=== PATIENT | female | born 2000 ===

== ENCOUNTER 2021-03-14 02:17 | Inpatient (IN) | payer BC, OTHER, SELFPAY ==
[2021-03-14] VITALS (29 sets, daily range): BP systolic 81–122; BP diastolic 36–79; PULSE 41–113; RESP 9–22; TEMP 31–37.1; O2SAT 87–100; BMI 21.9
--- NOTE | ~2021-03-14 | CT_ITS ---
EXAMINATION: CT CERVICAL SPINE WITHOUT CONTRAST; UNENHANCED CT OF THE HEAD. CLINICAL INFORMATION: Found down. Altered mental status. COMPARISON: None TECHNIQUE: Routine unenhanced CT of the head with multiple coronal and sagittal reformatted images; routine unenhanced CT of the cervical spine with multiple coronal and sagittal reformatted images. This CT examination was performed using dose optimization techniques as appropriate, variously including the following: *Automated exposure control *Adjustment of mA and/or kV according to patient size (this includes techniques or standardized protocols for targeted exams where dose is matched to indication/reason for exam; i.e. extremities or head) *Use of iterative reconstruction technique DLP: 1004 mGy-cm FINDINGS: CT head: Mild diffuse commensurate prominence of ventricles and sulci is noted. No intrarenal hemorrhage, tumors or acute infarcts are visualized. No focal parenchymal lesions of the brain are noted. Retained secretions are noted within the pharynx. Maxillary sinuses are partially included in the image [id number]. Near-complete opacification of the left maxillary sinus is noted. Moderate lobulated opacification of the sphenoid sinus is visualized. Partial visualization is made of possible mucosal retention cyst within the right maxillary sinus. Frontal sinuses and ethmoid air cells are clear. Mastoid air cells and middle ear cavities are clear. No orbital emphysema is noted. Left orbital wall appears intact. CT cervical spine: No fractures or acute appearing subluxations of the cervical spine are identified. The visualized lung apices are clear. Partial visualization is made of an enteric and endotracheal tubes. No arthropathic changes of the cervical spine are visualized. CT/CT head/brain wo con IMPRESSION: CT head: -No acute intracranial abnormalities. -Findings suspicious for chronic left maxillary and sphenoid sinusitis. CT cervical spine: -No acute fractures or malalignments.
--- NOTE | ~2021-03-14 | CT_ITS ---
EXAMINATION: CT CERVICAL SPINE WITHOUT CONTRAST; UNENHANCED CT OF THE HEAD. CLINICAL INFORMATION: Found down. Altered mental status. COMPARISON: None TECHNIQUE: Routine unenhanced CT of the head with multiple coronal and sagittal reformatted images; routine unenhanced CT of the cervical spine with multiple coronal and sagittal reformatted images. This CT examination was performed using dose optimization techniques as appropriate, variously including the following: *Automated exposure control *Adjustment of mA and/or kV according to patient size (this includes techniques or standardized protocols for targeted exams where dose is matched to indication/reason for exam; i.e. extremities or head) *Use of iterative reconstruction technique DLP: 1004 mGy-cm FINDINGS: CT head: Mild diffuse commensurate prominence of ventricles and sulci is noted. No intrarenal hemorrhage, tumors or acute infarcts are visualized. No focal parenchymal lesions of the brain are noted. Retained secretions are noted within the pharynx. Maxillary sinuses are partially included in the image [id number]. Near-complete opacification of the left maxillary sinus is noted. Moderate lobulated opacification of the sphenoid sinus is visualized. Partial visualization is made of possible mucosal retention cyst within the right maxillary sinus. Frontal sinuses and ethmoid air cells are clear. Mastoid air cells and middle ear cavities are clear. No orbital emphysema is noted. Left orbital wall appears intact. CT cervical spine: No fractures or acute appearing subluxations of the cervical spine are identified. The visualized lung apices are clear. Partial visualization is made of an enteric and endotracheal tubes. No arthropathic changes of the cervical spine are visualized. CT/CT cervical spine wo con IMPRESSION: CT head: -No acute intracranial abnormalities. -Findings suspicious for chronic left maxillary and sphenoid sinusitis. CT cervical spine: -No acute fractures or malalignments.
--- NOTE | ~2021-03-14 | XR_ITS ---
EXAMINATION: XR CHEST CLINICAL INFORMATION: Endotracheal tube placement COMPARISON: CT chest 03/14/2021 TECHNIQUE: Frontal view of the chest was obtained. FINDINGS: An endotracheal tube terminates 0.5 cm superior to the eder. Normal appearance of the cardiomediastinal structures. No focal pulmonary consolidation is identified. Enteric tube courses in the subphrenic configuration. XR/XR chest 1V IMPRESSION: -Endotracheal tube terminating 0.5 cm superior to the eder.
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
--- NOTE | 2021-03-14 02:18 | PC.NURSE ---
PT ARRIVED IN ED VIA EMS W/ REPORT OF CALL BEING DISPATCHED FOR UNRESPONSIVE FEMALE, ON ARRIVAL THEY HAD DIFFICULTY LOCATING THE PATIENT AND SHE WAS FOUND TO BE IN THE [place] FROM HOUSE SHE WAS LAST SEEN AT. +ETOH, UNRESPONSIVE, SMALL LAC TO CHIN. DURING TRANSFER PT WENT INTO RESP ARREST REQUIRING BVM. EMS STATES CONFLICTING STORIES BY BYSTANDERS OF HOW PT GOT ACROSS THE STREET FROM ORIGINAL LOCATION. 1 REPORT STATES PT MAY HAVE BEEN DRAGGED FROM RESIDENCE TO WOODED AREA. 0218 PT ARRIVED W/EMS RESP W/BVM, + C SPINE, PT HAD RECEIVED 4 MG ZOFRAN IV, AND 2MG NARCAN. PER EMS PT BEGAN VOMITING WHILE IN ROUTE, REQUIRING SUCTION TO MAINTIN HER AIRWAY. #18 IN L AC POC 127 W/EMS PER MD PREPARING TO INTUBATION. 021 POC 87 0.4 NARCAN IN HR 78 R 22 0222 BP 113/79 PT VOMITING, NO GAG REFLEX, REQUIRING SUCTION TO MAINTAIN HER AIRWAY 0223 ETOMIDATE 10MG IVP IN 0223 ROCURONIUM 50MG IVP IN 0226 ET TUBE PLACED,7.0 #22 @ LIP W/+ COLOR CHANGE. HR 118 R 29, DIFFICULTY OBTAINING O2 SAT D/T COLD EXTREMITIES LOPEZ CATH IN PLACE W/CLR YELLOW URINE RETURN. OG BEING PLACED AT THIS TIME 022 129/68 HR 97 R 20 O2 SAT 100% CORE TEMP 95.[address] 0231 131/[address]
[2021-03-14] MEDS: Naloxone HCl 0.4 MG/ML VIAL IVPUSH (02:19)
[2021-03-14] MEDS: Rocuronium Bromide 50 MG/5 ML VIAL IVPUSH (02:23)
[2021-03-14] MEDS: Etomidate 20 MG/10 ML VIAL 10 MG IVPUSH (02:23)
--- NOTE | 2021-03-14 02:29 | ECG_ITS ---
Test Reason : UNRESPONSIVE Blood Pressure : / mmHG Vent. Rate : 043 BPM Atrial Rate : 000 BPM P-R Int : 000 ms QRS Dur : 092 ms QT Int : 516 ms P-R-T Axes : 000 082 060 degrees QTc Int : 436 ms Sinus bradycardia with intermittent pacing spikes, but no capture Abnormal ECG No previous ECGs available Referred By: Kelsea Russell Electronically Signed By:SHADI REAL
--- NOTE | 2021-03-14 02:41 | ED.AMS ---
HPI - Altered Mental Status General Chief Complaint: Trauma Stated Complaint: UNRESPONSIVE Time Seen by Provider: 03/14/21 02:28 Source: EMS Mode of arrival: EMS Limitations: altered mental status History of Present Illness HPI narrative: per EMS states they were called for someone who drank too much but they could not find the person at the house that they were called for. EMS somehow then found the patient at a different residence? initially she seemed intoxicated they noted a bruise to her chin and so they were going to [facility] [place] but en route she had respiratory arrest to 70% and was bagged she then had multiple episodes of emesis and required NPA as well. Patient was then diverted to our hospital given respiratory arrest. MD complaint: altered mental status and other (found down outside) Onset (ago): unknown Severity: severe Consistency of symptoms: unknown Context: other (unknown found outside) Associated symptoms: denies other symptoms Treatments prior to arrival: other (had respiratory arrest and to be bagged en route) Related Data Allergies Allergy/AdvReac Type Severity Reaction Status Date / Time No Known Allergies Allergy Verified 03/14/21 02:29 Review of Systems Review of Systems: ROS unable to be obtained due to altered mental status [facility] Past Medical History Attestation statement: The following information was validated with the patient. Medical History No known health problems Social History Social History (Updated 03/14/21 @ 02:42 by Kelsea Russell DO) Alcohol intake: current Patient Tobacco Use Status: Tobacco use Unknown Advance Directives: No Patient : No Physical Exam Vital Signs: Vital Signs: Last Vital Signs Temp 95.9 F L 03/14/21 05:05 Pulse 59 03/14/21 05:05 Resp 18 03/14/21 05:05 BP 119/77 03/14/21 05:05 Pulse Ox 99 03/14/21 05:05 BMI result Body Mass Index 21.9 Appearance: Unresponsive. Severe distress. Disheveled smells of ETOH being bagged by EMS Eyes: Pupils 2mm sluggish - disconjugate gaze noted ENT: Pharynx with emesis noted, blood on L upper lip noted, bruising and abrasion to R anterior chin noted Neck: Cervical collar in place CVS: Normal heart rate and rhythm. Pulses normal. Respiratory: No respiratory distress. Breath sounds diminished in bases Abdomen: Soft and nontender. No signs of trauma : no obvious external signs of trauma Skin: Skin cold and dry. pale skin color. Extremities: No lower extremity edema. Dirt noted on knees Neuro: Unresponsive, no gag reflex, active vomiting while being bagged, no response to painful stimuli Course Course Course Narrative: no gag reflex no response to painful stimuli vomited multiple times while being bagged with EMS was vomiting en route and vomited in ED - intubated on arrival for airway protection, pulse ox en route desaturated to 70s per EMS but no O2 sat noted while being bagged. I did notify her father [phone] he lives in [facility] patient just woke up - she is trying to reach and bite the tube she is agitated her pupils are now 4mm and reactive - she did seem to nod her head when the RN noted to her that she was safe and in the hospital fentanyl and fentanyl/versed drips ordered 2L of IVF ordered call from [facility] [id number] - patient noted on CT chest to have R mainstem intubation on ETT placement she was 22cm at the lip RN now notes she is 24 or 25 at the lip - RT called to move back tube ET tube pulled back to 21 MDM - Altered Mental Status MDM Narrative Medical decision making narrative: 20 yo female undifferentiated found down unsure if this is trauma - intubated on arrival for airway protection - stat labs and trauma CT ordered, community healtherst police are aware of situation. Labs, cultures as well as empiric zosyn ordered given her emesis en route while being bagged. Lab Data Result diagrams: 03/14/21 03:30 03/14/21 03:30 Labs: Lab Results 03/14/21 03/14/21 03/14/21 Range/Units 02:19 02:40 02:40 WBC (4.8-10.8) X10*3/uL RBC (4.20-5.50) X10*6/uL Hgb (12.0-16.0) g/dl Hct (37.0-47.0) % MCV (80.0-98.0) fL MCH (27.0-33.0) pg MCHC (31.0-35.0) g/dl RDW (11.0-16.0) % Plt Count (160-400) X10*3/uL MPV (9.4-12.3) fL Immature Gran % (Auto) (0.0-0.4) % Neut % (Auto) (45-73) % Lymph % (Auto) (20-40) % Graves % (Auto) (2-11) % Eos % (Auto) (0-4) % Baso % (Auto) (0-2) % Lymph # (Auto) (1.2-4.9) X10*3/uL Graves # (Auto) (0.1-1.2) X10*3/uL Eos # (Auto) (0.0-0.4) X10*3/uL Baso # (Auto) (0.0-0.2) X10*3/uL Abs Immat Gran (auto) (0.00-0.03) X10*3/uL Absolute Neuts (auto) (2.0-8.3) x10*3/uL Absolute Nucleated RBC (0.0-0.012) X10*3/uL Nucleated RBC % (auto) (0.0-0.2) /100WBC PT (9.9-13.0) SEC INR (0.9-1.1) APTT (24.1-38.0) SEC VBG pH (7.32-7.43) VBG pCO2 mmHg VBG pO2 mmHg VBG HCO3 (22-26) mmol/L VBG O2 Saturation % VBG Base Excess mmol/L Sodium (135-145) mmol/L Potassium (3.3-5.1) mmol/L Chloride (96-108) mmol/L Carbon Dioxide (22-29) mmol/L Anion Gap (12-20) BUN (9-16) mg/dL Creatinine (0.5-1.4) mg/dL Estim Creat Clear Calc Estimated GFR POC Glucose 87 (60-115) mg/dL Random Glucose (60-115) mg/dL Lactic Acid (0.5-2.0) mmol/L Calcium (8.4-10.2) mg/dL Magnesium (1.6-2.6) mg/dL Total Bilirubin (0.0-1.0) mg/dL Direct Bilirubin (0.0-0.5) mg/dL AST (5-31) U/L ALT (0-31) U/L Alkaline Phosphatase (39-117) U/L Ammonia (13-55) umol/L Total Creatine Kinase (26-140) U/L Troponin I High Sens (<3.5-17.0) ng/L Total Protein (6.5-8.0) g/dL Albumin (3.5-5.0) g/dL Lipase (8-78) U/L Urine Color YELLOW Urine Appearance CLEAR Urine pH 6.0 (5.0-8.0) Ur Specific Archer <= 1.005 (1.005-1.025) Urine Protein NEG (NEG-TRACE) MG/DL Urine Glucose (UA) NEG (NEG) MG/DL Urine Ketones 15 (NEG) MG/DL Urine Blood NEG (NEG) Urine Nitrite NEG (NEG) Ur Leukocyte Esterase NEG (NEG) Urine Test (NEGATIVE) Salicylates (15-30) mg/dL Urine Opiates Screen Not Detected (Not Detect) Urine Fentanyl Screen Not Detected (Not Detect) Acetaminophen (<30) mcg/mL Ur Barbiturates Screen Not Detected (Not Detect) Ur Phencyclidine Scrn Not Detected (Not Detect) Ur Amphetamines Screen Not Detected (Not Detect) U Benzodiazepines Scrn Not Detected (Not Detect) Urine Cocaine Screen Not Detected (Not Detect) U Marijuana (THC) Screen Not Detected (Not Detect) Ethyl Alcohol mg/dL COVID-19 (JAVIER) (Negative) COVID-19 Clin Com 03/14/21 03/14/21 03/14/21 Range/Units 02:40 03:28 03:29 WBC (4.8-10.8) X10*3/uL RBC (4.20-5.50) X10*6/uL Hgb (12.0-16.0) g/dl Hct (37.0-47.0) % MCV (80.0-98.0) fL MCH (27.0-33.0) pg MCHC (31.0-35.0) g/dl RDW (11.0-16.0) % Plt Count (160-400) X10*3/uL MPV (9.4-12.3) fL Immature Gran % (Auto) (0.0-0.4) % Neut % (Auto) (45-73) % Lymph % (Auto) (20-40) % Graves % (Auto) (2-11) % Eos % (Auto) (0-4) % Baso % (Auto) (0-2) % Lymph # (Auto) (1.2-4.9) X10*3/uL Graves # (Auto) (0.1-1.2) X10*3/uL Eos # (Auto) (0.0-0.4) X10*3/uL Baso # (Auto) (0.0-0.2) X10*3/uL Abs Immat Gran (auto) (0.00-0.03) X10*3/uL Absolute Neuts (auto) (2.0-8.3) x10*3/uL Absolute Nucleated RBC (0.0-0.012) X10*3/uL Nucleated RBC % (auto) (0.0-0.2) /100WBC PT 13.7 H (9.9-13.0) SEC INR 1.2 H (0.9-1.1) APTT 31.1 (24.1-38.0) SEC VBG pH (7.32-7.43) VBG pCO2 mmHg VBG pO2 mmHg VBG HCO3 (22-26) mmol/L VBG O2 Saturation % VBG Base Excess mmol/L Sodium (135-145) mmol/L Potassium (3.3-5.1) mmol/L Chloride (96-108) mmol/L Carbon Dioxide (22-29) mmol/L Anion Gap (12-20) BUN (9-16) mg/dL Creatinine (0.5-1.4) mg/dL Estim Creat Clear Calc Estimated GFR POC Glucose (60-115) mg/dL Random Glucose (60-115) mg/dL Lactic Acid 4.4 H* (0.5-2.0) mmol/L Calcium (8.4-10.2) mg/dL Magnesium (1.6-2.6) mg/dL Total Bilirubin (0.0-1.0) mg/dL Direct Bilirubin (0.0-0.5) mg/dL AST (5-31) U/L ALT (0-31) U/L Alkaline Phosphatase (39-117) U/L Ammonia (13-55) umol/L Total Creatine Kinase (26-140) U/L Troponin I High Sens (<3.5-17.0) ng/L Total Protein (6.5-8.0) g/dL Albumin (3.5-5.0) g/dL Lipase (8-78) U/L Urine Color Urine Appearance Urine pH (5.0-8.0) Ur Specific Archer (1.005-1.025) Urine Protein (NEG-TRACE) MG/DL Urine Glucose (UA) (NEG) MG/DL Urine Ketones (NEG) MG/DL Urine Blood (NEG) Urine Nitrite (NEG) Ur Leukocyte Esterase (NEG) Urine Test NEGATIVE (NEGATIVE) Salicylates (15-30) mg/dL Urine Opiates Screen (Not Detect) Urine Fentanyl Screen (Not Detect) Acetaminophen (<30) mcg/mL Ur Barbiturates Screen (Not Detect) Ur Phencyclidine Scrn (Not Detect) Ur Amphetamines Screen (Not Detect) U Benzodiazepines Scrn (Not Detect) Urine Cocaine Screen (Not Detect) U Marijuana (THC) Screen (Not Detect) Ethyl Alcohol mg/dL COVID-19 (JAVIER) (Negative) COVID-19 Clin Com 03/14/21 03/14/21 03/14/21 Range/Units 03:29 03:29 03:29 WBC (4.8-10.8) X10*3/uL RBC (4.20-5.50) X10*6/uL Hgb (12.0-16.0) g/dl Hct (37.0-47.0) % MCV (80.0-98.0) fL MCH (27.0-33.0) pg MCHC (31.0-35.0) g/dl RDW (11.0-16.0) % Plt Count (160-400) X10*3/uL MPV (9.4-12.3) fL Immature Gran % (Auto) (0.0-0.4) % Neut % (Auto) (45-73) % Lymph % (Auto) (20-40) % Graves % (Auto) (2-11) % Eos % (Auto) (0-4) % Baso % (Auto) (0-2) % Lymph # (Auto) (1.2-4.9) X10*3/uL Graves # (Auto) (0.1-1.2) X10*3/uL Eos # (Auto) (0.0-0.4) X10*3/uL Baso # (Auto) (0.0-0.2) X10*3/uL Abs Immat Gran (auto) (0.00-0.03) X10*3/uL Absolute Neuts (auto) (2.0-8.3) x10*3/uL Absolute Nucleated RBC (0.0-0.012) X10*3/uL Nucleated RBC % (auto) (0.0-0.2) /100WBC PT (9.9-13.0) SEC INR (0.9-1.1) APTT (24.1-38.0) SEC VBG pH (7.32-7.43) VBG pCO2 mmHg VBG pO2 mmHg VBG HCO3 (22-26) mmol/L VBG O2 Saturation % VBG Base Excess mmol/L Sodium (135-145) mmol/L Potassium (3.3-5.1) mmol/L Chloride (96-108) mmol/L Carbon Dioxide (22-29) mmol/L Anion Gap (12-20) BUN (9-16) mg/dL Creatinine (0.5-1.4) mg/dL Estim Creat Clear Calc Estimated GFR POC Glucose (60-115) mg/dL Random Glucose (60-115) mg/dL Lactic Acid (0.5-2.0) mmol/L Calcium (8.4-10.2) mg/dL Magnesium (1.6-2.6) mg/dL Total Bilirubin (0.0-1.0) mg/dL Direct Bilirubin (0.0-0.5) mg/dL AST (5-31) U/L ALT (0-31) U/L Alkaline Phosphatase (39-117) U/L Ammonia 14 (13-55) umol/L Total Creatine Kinase (26-140) U/L Troponin I High Sens < 3.5 (<3.5-17.0) ng/L Total Protein (6.5-8.0) g/dL Albumin (3.5-5.0) g/dL Lipase (8-78) U/L Urine Color Urine Appearance Urine pH (5.0-8.0) Ur Specific Archer (1.005-1.025) Urine Protein (NEG-TRACE) MG/DL Urine Glucose (UA) (NEG) MG/DL Urine Ketones (NEG) MG/DL Urine Blood (NEG) Urine Nitrite (NEG) Ur Leukocyte Esterase (NEG) Urine Test (NEGATIVE) Salicylates (15-30) mg/dL Urine Opiates Screen (Not Detect) Urine Fentanyl Screen (Not Detect) Acetaminophen (<30) mcg/mL Ur Barbiturates Screen (Not Detect) Ur Phencyclidine Scrn (Not Detect) Ur Amphetamines Screen (Not Detect) U Benzodiazepines Scrn (Not Detect) Urine Cocaine Screen (Not Detect) U Marijuana (THC) Screen (Not Detect) Ethyl Alcohol 297 mg/dL COVID-19 (JAVIER) (Negative) COVID-19 Clin Com 03/14/21 03/14/21 03/14/21 Range/Units 03:30 03:30 03:30 WBC 7.6 (4.8-10.8) X10*3/uL RBC 3.57 L (4.20-5.50) X10*6/uL Hgb 11.0 L (12.0-16.0) g/dl Hct 33.4 L (37.0-47.0) % MCV 93.6 (80.0-98.0) fL MCH 30.8 (27.0-33.0) pg MCHC 32.9 (31.0-35.0) g/dl RDW 12.4 (11.0-16.0) % Plt Count 233 (160-400) X10*3/uL MPV 10.1 (9.4-12.3) fL Immature Gran % (Auto) 0.4 (0.0-0.4) % Neut % (Auto) 77.2 H (45-73) % Lymph % (Auto) 18.0 L (20-40) % Graves % (Auto) 3.8 (2-11) % Eos % (Auto) 0.1 (0-4) % Baso % (Auto) 0.5 (0-2) % Lymph # (Auto) 1.4 (1.2-4.9) X10*3/uL Graves # (Auto) 0.3 (0.1-1.2) X10*3/uL Eos # (Auto) 0.0 (0.0-0.4) X10*3/uL Baso # (Auto) 0.0 (0.0-0.2) X10*3/uL Abs Immat Gran (auto) 0.03 (0.00-0.03) X10*3/uL Absolute Neuts (auto) 5.8 (2.0-8.3) x10*3/uL Absolute Nucleated RBC 0.000 (0.0-0.012) X10*3/uL Nucleated RBC % (auto) 0.0 (0.0-0.2) /100WBC PT (9.9-13.0) SEC INR (0.9-1.1) APTT (24.1-38.0) SEC VBG pH (7.32-7.43) VBG pCO2 mmHg VBG pO2 mmHg VBG HCO3 (22-26) mmol/L VBG O2 Saturation % VBG Base Excess mmol/L Sodium 137 (135-145) mmol/L Potassium 3.3 (3.3-5.1) mmol/L Chloride 105 (96-108) mmol/L Carbon Dioxide 17 L (22-29) mmol/L Anion Gap 18 (12-20) BUN 7 L (9-16) mg/dL Creatinine 0.68 (0.5-1.4) mg/dL Estim Creat Clear Calc 105.2 Estimated GFR > 60 POC Glucose (60-115) mg/dL Random Glucose 106 (60-115) mg/dL Lactic Acid (0.5-2.0) mmol/L Calcium 8.3 L (8.4-10.2) mg/dL Magnesium 2.0 (1.6-2.6) mg/dL Total Bilirubin 0.5 (0.0-1.0) mg/dL Direct Bilirubin 0.3 (0.0-0.5) mg/dL AST 19 (5-31) U/L ALT 10 (0-31) U/L Alkaline Phosphatase 55 (39-117) U/L Ammonia (13-55) umol/L Total Creatine Kinase 89 (26-140) U/L Troponin I High Sens (<3.5-17.0) ng/L Total Protein 6.2 L (6.5-8.0) g/dL Albumin 4.0 (3.5-5.0) g/dL Lipase 19 (8-78) U/L Urine Color Urine Appearance Urine pH (5.0-8.0) Ur Specific Archer (1.005-1.025) Urine Protein (NEG-TRACE) MG/DL Urine Glucose (UA) (NEG) MG/DL Urine Ketones (NEG) MG/DL Urine Blood (NEG) Urine Nitrite (NEG) Ur Leukocyte Esterase (NEG) Urine Test (NEGATIVE) Salicylates < 5.0 L (15-30) mg/dL Urine Opiates Screen (Not Detect) Urine Fentanyl Screen (Not Detect) Acetaminophen < 1 (<30) mcg/mL Ur Barbiturates Screen (Not Detect) Ur Phencyclidine Scrn (Not Detect) Ur Amphetamines Screen (Not Detect) U Benzodiazepines Scrn (Not Detect) Urine Cocaine Screen (Not Detect) U Marijuana (THC) Screen (Not Detect) Ethyl Alcohol mg/dL COVID-19 (JAVIER) Negative (Negative) COVID-19 Clin Com See Note 03/14/21 Range/Units 03:34 WBC (4.8-10.8) X10*3/uL RBC (4.20-5.50) X10*6/uL Hgb (12.0-16.0) g/dl Hct (37.0-47.0) % MCV (80.0-98.0) fL MCH (27.0-33.0) pg MCHC (31.0-35.0) g/dl RDW (11.0-16.0) % Plt Count (160-400) X10*3/uL MPV (9.4-12.3) fL Immature Gran % (Auto) (0.0-0.4) % Neut % (Auto) (45-73) % Lymph % (Auto) (20-40) % Graves % (Auto) (2-11) % Eos % (Auto) (0-4) % Baso % (Auto) (0-2) % Lymph # (Auto) (1.2-4.9) X10*3/uL Graves # (Auto) (0.1-1.2) X10*3/uL Eos # (Auto) (0.0-0.4) X10*3/uL Baso # (Auto) (0.0-0.2) X10*3/uL Abs Immat Gran (auto) (0.00-0.03) X10*3/uL Absolute Neuts (auto) (2.0-8.3) x10*3/uL Absolute Nucleated RBC (0.0-0.012) X10*3/uL Nucleated RBC % (auto) (0.0-0.2) /100WBC PT (9.9-13.0) SEC INR (0.9-1.1) APTT (24.1-38.0) SEC VBG pH 7.39 (7.32-7.43) VBG pCO2 28 mmHg VBG pO2 56 mmHg VBG HCO3 17 L (22-26) mmol/L VBG O2 Saturation 82.0 % VBG Base Excess -6.1 mmol/L Sodium (135-145) mmol/L Potassium (3.3-5.1) mmol/L Chloride (96-108) mmol/L Carbon Dioxide (22-29) mmol/L Anion Gap (12-20) BUN (9-16) mg/dL Creatinine (0.5-1.4) mg/dL Estim Creat Clear Calc Estimated GFR POC Glucose (60-115) mg/dL Random Glucose (60-115) mg/dL Lactic Acid (0.5-2.0) mmol/L Calcium (8.4-10.2) mg/dL Magnesium (1.6-2.6) mg/dL Total Bilirubin (0.0-1.0) mg/dL Direct Bilirubin (0.0-0.5) mg/dL AST (5-31) U/L ALT (0-31) U/L Alkaline Phosphatase (39-117) U/L Ammonia (13-55) umol/L Total Creatine Kinase (26-140) U/L Troponin I High Sens (<3.5-17.0) ng/L Total Protein (6.5-8.0) g/dL Albumin (3.5-5.0) g/dL Lipase (8-78) U/L Urine Color Urine Appearance Urine pH (5.0-8.0) Ur Specific Archer (1.005-1.025) Urine Protein (NEG-TRACE) MG/DL Urine Glucose (UA) (NEG) MG/DL Urine Ketones (NEG) MG/DL Urine Blood (NEG) Urine Nitrite (NEG) Ur Leukocyte Esterase (NEG) Urine Test (NEGATIVE) Salicylates (15-30) mg/dL Urine Opiates Screen (Not Detect) Urine Fentanyl Screen (Not Detect) Acetaminophen (<30) mcg/mL Ur Barbiturates Screen (Not Detect) Ur Phencyclidine Scrn (Not Detect) Ur Amphetamines Screen (Not Detect) U Benzodiazepines Scrn (Not Detect) Urine Cocaine Screen (Not Detect) U Marijuana (THC) Screen (Not Detect) Ethyl Alcohol mg/dL COVID-19 (JAVIER) (Negative) COVID-19 Clin Com ECG Data ECG #1: Attestation: I personally reviewed and interpreted this ECG as follows: ECG interpretation date: 03/14/21 ECG interpretation time: 03:25 Interpretation: Rate: 43 Rhythm: junctional bradycardia Evarts: normal Normal P waves. Normal MARQUITA. Normal QRS complex. ST T wave : nonspecific no MADDIE qTC: normal prior studies: no prior artifact noted The study has been interpreted contemporaneously by me. . Procedures Intubation Time out performed: Yes sedative: Etomidate Mg Given: 10 paralytic: Rocuronium Mg Given: 50 Laryngoscope: Xiomara Assist Device Used: other (glidescope) ET Tube Size: 7 Tube Secured Depth (cm): 22 Tube Secured Location: lips Tube Placement Confirmation: visualized tube passing through cords, equal breath sounds bilaterally and confirmation by capnometry Patient Tolerated Procedure: well and no complications Additional Comments: c spine held during intubation by social media executive Time Critical Care Time Critical Care Time: Yes Total Critical Care Time: 90 Attestation: reassessments, call to family, vent management, sedation, 2L of IVF I attest to this time spent taking care of the patient Discharge Plan Discharge Clinical Impression: Acidosis, lactic Aspiration pneumonia Qualifiers: Aspiration pneumonia type: unspecified Laterality: unspecified laterality Lung location: unspecified part of lung Qualified Code(s): J69.0 - Pneumonitis due to inhalation of food and vomit Facial hematoma Qualifiers: Encounter type: initial encounter Qualified Code(s): S00.83XA - Contusion of other part of head, initial encounter Alcohol intoxication Qualifiers: Complication of substance-induced condition: with unspecified complication Qualified Code(s): F10.929 - Alcohol use, unspecified with intoxication, unspecified Hypothermia Qualifiers: Encounter type: initial encounter Qualified Code(s): T68.XXXA - Hypothermia, initial encounter Patient Disposition: Admitted As Inpatient
[2021-03-14 02:47] LABS: Appearance Urine CLEAR; Color Urine YELLOW; Glucose Urine UA NEG (NEG); Leukocyte Esterase Urine NEG (NEG); Nitrite Urine NEG (NEG); Specific Gravity - Urine <= 1.005 (1.005-1.025); Urine Blood NEG (NEG); Urine Ketones 15 MG/DL (NEG); Urine Protein NEG (NEG-TRACE)
[2021-03-14 02:53] LABS: UPreg QC Valid YES; Urine Pregnancy NEGATIVE (NEGATIVE)
[2021-03-14 03:05] LABS: Amphetamine Screen Urine Not Detected (Not Detect); Barbiturates, Urine Not Detected (Not Detect); Benzodiazepines Screen Urine Not Detected (Not Detect); Cannabinoid Screen Urine Not Detected (Not Detect); Cocaine Screen Urine Not Detected (Not Detect); Fentanyl, urine Not Detected (Not Detect); Opiate Screen Urine Not Detected (Not Detect); Phencyclidine Screen Urine Not Detected (Not Detect)
[2021-03-14] MEDS: iohexoL 350 MG/ML 100 ML INFUS..BTL 85 ML IV (03:32)
[2021-03-14 03:36] LABS: MANUAL DIFF FLAG NO
[2021-03-14] MEDS: 0.9 % Sodium Chloride 1,000 ML 999 ML IVCONT ×2 (03:38→03:40)
--- NOTE | 2021-03-14 03:38 | PC.NURSE ---
PTS FATHER CALLED FOR UPDATE, MADE AWARE WE ARE WAITING ON RESULTS OF CT SCAN AND LABS. PER DAD WILL CALL BACK IN 30 MINS FOR UPDATE
[2021-03-14 03:40] LABS: VBG Base Excess -6.1 mmol/L; VBG HCO3 17 mmol/L (22-26); VBG pCO2 28 mmHg; VBG pH 7.39 (7.32-7.43); VBG pO2 56 mmHg
[2021-03-14 03:40] LABS: Basophils Percent Auto 0.5 % (0-2); Eosinophils Percent Auto 0.1 % (0-4); Hematocrit 33.4 % (37.0-47.0); Imm Gran Abs Auto 0.03 X10*3/uL (0.00-0.03); Imm Gran Pct Auto 0.4 % (0.0-0.4); Lymphocytes Absolute Auto 1.4 X10*3/uL (1.2-4.9); Mean Corpuscular HGB Conc 32.9 g/dl (31.0-35.0); Mean Corpuscular Hemoglobin 30.8 pg (27.0-33.0); Mean Corpuscular Volume 93.6 fL (80.0-98.0); Mean Platelet Volume 10.1 fL (9.4-12.3); Monocytes Absolute Auto 0.3 X10*3/uL (0.1-1.2); Monocytes Percent Auto 3.8 % (2-11); Neutrophils Absolute Auto 5.8 x10*3/uL (2.0-8.3); Neutrophils Percent Auto 77.2 % (45-73); Platelet Count 233 X10*3/uL (160-400); Red Blood Count 3.57 X10*6/uL (4.20-5.50); Red Cell Distribution Width 12.4 % (11.0-16.0); White Blood Count 7.6 X10*3/uL (4.8-10.8)
[2021-03-14 03:42] LABS: Glucose, Whole Blood 87 mg/dL (60-115)
[2021-03-14] MEDS: Piperacillin Sodium/Tazobactam 3.375 GM in 0.9 % Sodium Chloride 50 ML IV (03:42)
[2021-03-14 03:44] LABS: Ammonia 14 umol/L (13-55)
[2021-03-14 03:46] LABS: INTERNATIONAL NORM RATIO 1.2 (0.9-1.1); Prothrombin Time 13.7 SEC (9.9-13.0)
[2021-03-14 03:46] LABS: Venous Blood Gas Refer to POC result
[2021-03-14 03:49] LABS: Partial Thromboplastin Time 31.1 SEC (24.1-38.0)
[2021-03-14 03:52] LABS: Lactic Acid 4.4 mmol/L (0.5-2.0)
[2021-03-14 03:53] LABS: Ethanol 297 mg/dL
[2021-03-14 03:56] LABS: Troponin-I High Sensitivity < 3.5 ng/L (<3.5-17.0)
[2021-03-14] MEDS: fentaNYL citrate/PF 100 MCG/2 ML VIAL 50 MCG IVPUSH (03:57)
[2021-03-14 03:58] LABS: Acetaminophen LAB < 1 mcg/mL (<30); Alanine Aminotransferase 10 U/L (0-31); Alkaline Phosphatase 55 U/L (39-117); Anion Gap 18 (12-20); Aspartate Amino Transferase 19 U/L (5-31); Bilirubin Direct 0.3 mg/dL (0.0-0.5); Bilirubin Total 0.5 mg/dL (0.0-1.0); Blood Urea Nitrogen 7 mg/dL (9-16); COVID-19 Test Negative (Negative); Calcium 8.3 mg/dL (8.4-10.2); Carbon Dioxide 17 mmol/L (22-29); Chloride 105 mmol/L (96-108); Creatinine Clr Calc Pharmacy 105.2; Estimated Glomerular Filt Rate > 60; Glucose Random 106 mg/dL (60-115); IDNOW Serial# 9DD0AD1C; Lipase 19 U/L (8-78); Potassium 3.3 mmol/L (3.3-5.1); Salicylate < 5.0 mg/dL (15-30); Sodium 137 mmol/L (135-145); Total Protein 6.2 g/dL (6.5-8.0)
--- NOTE | 2021-03-14 03:59 | PC.NURSE ---
Pt brought to ED CT on groundwater monitoring technician, HR to [address] Core temp remained 94.6 degrees f. Pt returned to room without incidence. Pt medicated per JUN with 2L NS and zosyn. Pt began moving head, moving arms, lifting head off of bead. This rn spoke to pt to calm her while DAVID Benton micah up fentanyl per Dr Russell's order. Pt medicated with fentanyl for sedation. Pt sedated at this time.
[2021-03-14] MEDS: fentaNYL citrate/NS 1,000 MCG/100 ML PLAST..BAG 2.5 MCG IVCONT (04:10)
[2021-03-14] MEDS: Midazolam HCl/NS 50 MG/50 ML PLAST..BAG IVCONT (04:19)
[2021-03-14] MEDS: Midazolam HCl/PF 2 MG/2 ML VIAL 1 MG IVPUSH (04:20)
--- NOTE | 2021-03-14 04:21 | PC.NURSE ---
Pt thrashing arms and legs, lifting head off of stretcher. Pt informed she is in the hospital, is OK and safe. Pt shaking her head no.
--- NOTE | 2021-03-14 04:31 | PC.NURSE ---
etomidate 10mg wasted with Fabiana Turner RN. Fentanyl 50mcg wasted with Fabiana Turner RN.
--- NOTE | 2021-03-14 04:39 | PC.NURSE ---
WICKER WORKER FROM [facility] [employer] HERE, SPOKE W/DR. PALMA AND MYSELF. UPDATED ON PATIENTS CONDITION AND THAT WE HAD BEEN IN CONTACT W/ FAMILY. WICKER WORKER STATES HE WILL BE IN CONTACT W/IN 4-5 HOURS
--- NOTE | 2021-03-14 04:46 | PC.NURSE ---
Dr Russell asked this RN what pt's tube was at lip. Tube noted to be [address] Russell requesting RT to bedside to pull back to 22 at lip. RT to bedside, ET tube [address] lip. CXR obtained. Dr Russell requesting RT position ET tube to 21 at lip. ET tube positioned at 21 at lip.
[2021-03-14] MEDS: 0.9 % Sodium Chloride 1,000 ML 999 ML IV (04:49)
--- NOTE | 2021-03-14 04:53 | PC.NURSE ---
CARRINGTON Enamorado at bedside to perform eval.
--- NOTE | 2021-03-14 04:55 | PC.NURSE ---
This RN asking RT multiple times how to improve pt's ETCO2. RT informs this RN that the belief is that pt's ETCO2 is low 2/2 hypothermia.
--- NOTE | 2021-03-14 05:08 | PC.NURSE ---
ALL OF PATIENTS BELONGINGS- PHONE, JEWELRY, CLOTHING WERE GIVEN TO GARDENING MANAGER CHARLINE AGGARWAL . PT FAMILY MADE AWARE. DAD HAS ALSO BEEN UPDATED ON PATIENTS STATUS AT THIS TIME. SHE WILL BE GOING TO ICU FOR DURATION OF CARE
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
[2021-03-14 05:33] LABS: Reflex Lactate? Lactic Acid Added
--- NOTE | 2021-03-14 05:33 | PC.NURSE ---
RT aware that pt is ready for transport.
--- NOTE | 2021-03-14 05:41 | PC.NURSE ---
Pt eyes open, moving her hand, this RN informing pt she's ok. Pt shaking head no. Pt fentanyl increased to 100mcg
--- NOTE | 2021-03-14 06:09 | PC.NURSE ---
SIGIFREDO ([facility] [place]) [phone]
[2021-03-14] MEDS: Lactated Ringers 1,000 ML 125 ML IVCONT (06:53)
--- NOTE | 2021-03-14 06:55 | PC.NURSE ---
Pt remains stable on ventilator prior to, and during, transport with RT and Serenity HERNANDEZ to ICU. Pt transferred to icu bed without incidence.
[2021-03-14 07:16] LABS: VBG Base Excess -7.4 mmol/L; VBG HCO3 15 mmol/L (22-26); VBG pCO2 24 mmHg; VBG pH 7.41 (7.32-7.43); VBG pO2 164 mmHg
[2021-03-14 07:53] LABS: Osmolality, Serum 340 mosm/kg (281-305)
[2021-03-14 07:54] LABS: ~Lactic Acid-LAB USE ONLY 4.2 mmol/L (0.5-2.0)
[2021-03-14 08:01] LABS: Alanine Aminotransferase 12 U/L (0-31); Albumin Level 3.4 g/dL (3.5-5.0); Alkaline Phosphatase 48 U/L (39-117); Anion Gap 17 (12-20); Aspartate Amino Transferase 22 U/L (5-31); Bilirubin Direct 0.2 mg/dL (0.0-0.5); Bilirubin Total 0.5 mg/dL (0.0-1.0); Blood Urea Nitrogen 6 mg/dL (9-16); Carbon Dioxide 15 mmol/L (22-29); Chloride 114 mmol/L (96-108); Creatinine Clr Calc Pharmacy 123.3; Estimated Glomerular Filt Rate > 60; Glucose Random 77 mg/dL (60-115); Magnesium 1.7 mg/dL (1.6-2.6); Potassium 3.6 mmol/L (3.3-5.1); Sodium 142 mmol/L (135-145); Total Protein 5.3 g/dL (6.5-8.0)
[2021-03-14 08:15] LABS: Calcium 7.4 mg/dL (8.4-10.2)
[2021-03-14 09:33] LABS: Reflex Lactate? 2 Y
[2021-03-14] MEDS: Magnesium Sulfate/D5W 1 GM/100 ML PIGGYBACK IV (09:45)
[2021-03-14 09:51] LABS: Acetone, serum QL Negative (Negative)
[2021-03-14] MEDS: Thiamine HCL 100 MG in 0.9 % Sodium Chloride 100 ML 202 MG IV (10:20)
[2021-03-14 10:23] LABS: VBG Base Excess -9.5 mmol/L; VBG HCO3 14 mmol/L (22-26); VBG pCO2 27 mmHg; VBG pH 7.32 (7.32-7.43); VBG pO2 43 mmHg
[2021-03-14 10:49] LABS: Anion Gap 24 (12-20); Blood Urea Nitrogen 7 mg/dL (9-16); Calcium 7.7 mg/dL (8.4-10.2); Carbon Dioxide 9 mmol/L (22-29); Chloride 114 mmol/L (96-108); Creatinine Clr Calc Pharmacy 106.8; Estimated Glomerular Filt Rate > 60; Glucose Random 58 mg/dL (60-115); Phosphorus 3.2 mg/dL (2.7-4.5); Potassium 3.7 mmol/L (3.3-5.1); Sodium 143 mmol/L (135-145)
[2021-03-14] MEDS: Sodium Bicarbonate 8.4% 50 MEQ in Dextrose 5 % 950 ML 100 MEQ IV (10:57)
[2021-03-14 11:00] LABS: Osmolality, Serum 337 mosm/kg (281-305)
--- NOTE | 2021-03-14 11:16 | MHC.CM.PN ---
Pt presently in ICU - intubated and unable to participate in assessment: Information obtained from ICU staff and EMR: pt is a student at [employer] and was brought in with ETOH intoxication/aspiration pna. Pt's parents are on their way from [facility] to follow for d/c planning when appropriate
[2021-03-14 11:34] LABS: Venous Blood Gas Refer to POC result
[2021-03-14 11:34] LABS: Venous Blood Gas Refer to POC result
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
--- NOTE | 2021-03-14 11:58 | P.CONCC_ITS ---
History of Present Illness Data of Consult Service Date: 03/14/21 Requesting physician: Kelsea Russell Primary Care Provider: Unknown Physician HPI Reason for consult: Intoxication Of focused sepsis exam failed to reveal any evidence of sepsis the lactic acids were drawn purely to assess of the intoxication this was primarily and and alcohol intoxication Apparently was found in a disheveled state markedly reduced level of consciousness clearly this round of I vomitus root and en route became apneic emergently intubated and and toxicology screen indicated elevated alcohol level almost 300 mg% and I sent an osmolality of the serum which was 340 by measurement but only 284-290 by calculation so clearly the osmol out gap implies in considerable alcohol level but serum acetone was negative and there was no med above no anion gap metabolic acidosis and clearly no evidence of this being a septic issue and lactic acid of course was elevated and persistently so over a period of time probably reflecting the metabolism of this elevated alcohol level Liver enzymes renal function etc. all okay cardiovascular function clinically okay chest CT scan shows volume loss due to atelectasis of the left lung along with left lower lobe infiltrate probably representing aspiration But interestingly she was persistently bradycardic and bradypnea even when awakening and fortunately she did awaken with good cognitive function no signs of agitation or delirium Review of Systems Review of Systems: Yes all other systems are reviewed and are negative [facility] Past Medical History Medical History No known health problems Social History Social History (Updated 03/14/21 @ 02:42 by Kelsea Russell DO) Household Members [place] [facility] [place] Unable to assess alcohol history related to: Unable to respond Alcohol intake: current Patient Tobacco Use Status: Tobacco use Unknown Use of substances other than those prescribed or required for medical reasons: Unable to respond Advance Directives: No Recently lost weight without trying: Unsure Nutrition Risks: On aspiration precautions Patient : No Meds Allergies Allergy/AdvReac Type Severity Reaction Status Date / Time No Known Allergies Allergy Verified 03/14/21 02:29 Active Medications: Current Medications Midazolam HCl (Versed) 50 mg in 50 mls @ 1 mls/hr IVCONT .Q24H [facility] Last Infusion: 03/14/21 09:34 Dose: Infused Documented by: Sodium Bicarbonate 50 meq/ (Dextrose) 1,000 mls @ 100 mls/hr IV .Q10H [facility] Last Admin: 03/14/21 10:57 Dose: 100 mls/hr Documented by: Naloxone HCl (Naloxone Hcl 0.4 Mg/Ml Vial) 0.2 mg IVPUSH Q2M PRN PRN Reason: Excessive sedation or RR < 8 Physical Exam Vital Signs: Vital Signs: Last Vital Signs Temp 97.9 F 03/14/21 10:00 Pulse 64 03/14/21 10:00 Resp 10 L 03/14/21 10:00 BP 104/56 L 03/14/21 10:00 Pulse Ox 100 03/14/21 10:00 BMI result Body Mass Index 21.9 Of borderline hypotension with excellent oxygen saturation on the ventilator and and when she awakened we kept her for 1 hour on pressure support and she did that very well but periodic bradypnea was very significant but as she became more awake better able to compensate with very minimal Minute ventilatory needs left lower lobe bra loss Cardiac exam with good bilateral carotid upstrokes and no neck vein distension Abdomen Benign no again a megaly review of all CT scans of chest abdomen pelvis cervical spine and head were all negative except for the left lower lobe infiltrate and volume loss of the left lung Results Labs CBC & Chem 7: 03/14/21 03:30 03/14/21 10:15 Labs: Short CBC 03/14/21 Range/Units 03:30 WBC 7.6 (4.8-10.8) X10*3/uL Hgb 11.0 L (12.0-16.0) g/dl Hct 33.4 L (37.0-47.0) % Plt Count 233 (160-400) X10*3/uL BMP 03/14/21 03/14/21 03/14/21 03:30 07:22 10:15 Sodium 137 142 143 Potassium 3.3 3.6 3.7 Chloride 105 114 H 114 H Carbon Dioxide 17 L 15 L 9 L* D BUN 7 L 6 L 7 L Creatinine 0.68 0.58 0.67 Calcium 8.3 L 7.4 L D 7.7 L Cardiac Enzymes 03/14/21 Range/Units 03:30 Total Creatine Kinase 89 (26-140) U/L Liver Function 03/14/21 03/14/21 Range/Units 03:30 07:22 Total Bilirubin 0.5 0.5 (0.0-1.0) mg/dL Direct Bilirubin 0.3 0.2 (0.0-0.5) mg/dL AST 19 22 (5-31) U/L ALT 10 12 (0-31) U/L Alkaline Phosphatase 55 48 (39-117) U/L Albumin 4.0 3.4 L (3.5-5.0) g/dL Urine 03/14/21 Range/Units 02:40 Urine Color YELLOW Urine Appearance CLEAR Urine pH 6.0 (5.0-8.0) Ur Specific [place] <= 1.005 (1.005-1.025) Urine Protein NEG (NEG-TRACE) MG/DL Urine Glucose (UA) NEG (NEG) MG/DL Assessment and Plan (1) Aspiration pneumonia: Qualifiers: Aspiration pneumonia type: unspecified Laterality: unspecified laterality Lung location: unspecified part of lung Qualified Code(s): J69.0 - Pneumonitis due to inhalation of food and vomit Status: Acute (2) Facial hematoma: Qualifiers: Encounter type: initial encounter Qualified Code(s): S00.83XA - Contusion of other part of head, initial encounter Status: Acute (3) Alcohol intoxication: Qualifiers: Complication of substance-induced condition: with unspecified complication Qualified Code(s): F10.929 - Alcohol use, unspecified with intoxication, unspecified Status: Acute (4) Acidosis, lactic: Status: Acute (5) Hypothermia: Qualifiers: Encounter type: initial encounter Qualified Code(s): T68.XXXA - Hypothermia, initial encounter Status: Acute (6) Sinus bradycardia: Status: Acute (7) Hypoglycemia: Status: Acute (8) Hyperosmolarity syndrome: Status: Acute Will continue the IV bicarb drip fluid boluses to support blood pressure and sending a GHB urine sample for analysis to see if this was part of the toxidrome Follow alcohol levels and serum osmolality
[2021-03-14 12:33] LABS: Glucose, Whole Blood 72 mg/dL (60-115)
[2021-03-14 14:37] LABS: MANUAL DIFF FLAG NO
[2021-03-14 14:38] LABS: Basophils Percent Auto 0.3 % (0-2); Hematocrit 31.8 % (37.0-47.0); Hemoglobin 10.4 g/dl (12.0-16.0); Imm Gran Abs Auto 0.05 X10*3/uL (0.00-0.03); Imm Gran Pct Auto 0.3 % (0.0-0.4); Lymphocytes Absolute Auto 3.2 X10*3/uL (1.2-4.9); Lymphocytes Percent Auto 21.5 % (20-40); Mean Corpuscular HGB Conc 32.7 g/dl (31.0-35.0); Mean Corpuscular Hemoglobin 30.6 pg (27.0-33.0); Mean Corpuscular Volume 93.5 fL (80.0-98.0); Mean Platelet Volume 9.6 fL (9.4-12.3); Monocytes Absolute Auto 0.8 X10*3/uL (0.1-1.2); Monocytes Percent Auto 5.5 % (2-11); Neutrophils Absolute Auto 10.9 x10*3/uL (2.0-8.3); Neutrophils Percent Auto 72.4 % (45-73); Platelet Count 232 X10*3/uL (160-400); Red Cell Distribution Width 12.7 % (11.0-16.0); Venous Blood Gas Refer to POC result; White Blood Count 15.1 X10*3/uL (4.8-10.8)
[2021-03-14 14:41] LABS: VBG HCO3 19 mmol/L (22-26); VBG pCO2 31 mmHg; VBG pO2 74 mmHg
[2021-03-14 14:53] LABS: Ethanol 110 mg/dL; Lactic Acid 2.6 mmol/L (0.5-2.0)
[2021-03-14] MEDS: Lactated Ringers 1,000 ML 999 ML IV (14:53)
[2021-03-14 14:54] LABS: Anion Gap 14 (12-20); Blood Urea Nitrogen 6 mg/dL (9-16); Calcium 7.7 mg/dL (8.4-10.2); Carbon Dioxide 20 mmol/L (22-29); Chloride 111 mmol/L (96-108); Creatinine Clr Calc Pharmacy 113.6; Estimated Glomerular Filt Rate > 60; Glucose Random 96 mg/dL (60-115); Potassium 3.5 mmol/L (3.3-5.1); Sodium 141 mmol/L (135-145)
[2021-03-14 14:59] LABS: Osmolality, Serum 310 mosm/kg (281-305)
[2021-03-14 16:35] LABS: Reflex Lactate? Lactic Acid Added
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
[2021-03-14 17:37] LABS: ~Lactic Acid-LAB USE ONLY 4.2 mmol/L (0.5-2.0)
[2021-03-14] MEDS: Lactated Ringers 1,000 ML 100 ML IVCONT (17:54)
[2021-03-14 18:59] LABS: Reflex Lactate? 2 Y
[2021-03-14 20:06] LABS: ~Lactic Acid-LAB USE ONLY 3.3 mmol/L (0.5-2.0)
[2021-03-15 04:00] VITALS: BP 98/58; PULSE 75; RESP 18; TEMP 36.6; O2SAT 99
[2021-03-15 07:25] VITALS: BP 91/54; PULSE 61; RESP 17; TEMP 36.8; O2SAT 99
[2021-03-15 07:56] LABS: Anion Gap 10 (12-20); Blood Urea Nitrogen 6 mg/dL (9-16); Calcium 8.1 mg/dL (8.4-10.2); Carbon Dioxide 26 mmol/L (22-29); Chloride 106 mmol/L (96-108); Creatinine Clr Calc Pharmacy 106.8; Estimated Glomerular Filt Rate > 60; Glucose Random 96 mg/dL (60-115); Potassium 3.6 mmol/L (3.3-5.1); Sodium 138 mmol/L (135-145)
--- NOTE | 2021-03-15 09:36 | MHC.CM.PN ---
Patient lives in the dorms at [facility] and [facility] the goal, once medically cleared.Patient may benefit from a Care Team Consult. CM will follow.
[2021-03-15 11:01] VITALS: BP 99/58; PULSE 67; RESP 17; TEMP 36.9; O2SAT 100
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
--- NOTE | 2021-03-15 12:32 | PM.DS ---
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 Physician,Unknown J [Primary Care Provider] - 1 Week Discharge Medications: No Action No Known Home Meds RF: 0 Discharge Orders: Discharge Order (Routine); Ordered 03/15/21 Ordered By: Ari Reyez Diet: advance to usual diet Activity on Discharge: no alcohol Stand Alone Forms: Patient Portal Discharge page Care Plan Goals: avoid complications of alcohol intoxication Health Concerns: alcohol intoxication, metabolic acidosis, respiratory failure Plan of Treatment: avoid alcohol follow up with [facility] in 1 week Assessment: see Discharge Summary Patient Instructions: Alcohol Intoxication (DC)
--- NOTE | 2021-03-15 12:39 | MHC.CM.PN ---
Patient has been medically cleared for dc to home today, no services.
== END 2021-03-15 15:12 | disposition home or self-care (01) | DRG 137 ==
LOC: HO.ED 03:59 → HO.EDOVER 05:11 → HO.ICU 06:43 → HO.IMC 16:42
PROVIDERS: Family Medicine; Internal Medicine Cardiovascular Disease; Admitting Provider Physician Assistant; Emergency Provider Emergency Medicine; Visit Provider Physician Assistant
DX: J69.0 Pneumonitis due to inhalation of food and vomit (principal); T68.XXXA Hypothermia, initial encounter; S00.83XA Contusion of other part of head, initial encounter; X58.XXXA Exposure to other specified factors, initial encounter; Z20.822 Contact with and (suspected) exposure to COVID-19; Y90.8 Blood alcohol level of 240 mg/100 ml or more; F10.929 Alcohol use, unspecified with intoxication, unspecified; R00.1 Bradycardia, unspecified; E16.2 Hypoglycemia, unspecified
CPT/HCPCS: 36415; 70450; 71045; 71260; 72125; 74177; 80048; 80053; 80076; 80143; 80179; 80307; 81003; 81025; 82009; 82077; 82140; 82248; 82550; 82803; 82947; 83605; 83690; 83735; 83930; 84100; 84484; 85025; 85610; 85730; 87040; 87635; 93005; 94002; 94003; 94799; 96361; 96374; 96375; 96376; 99285; 99291; 99292; J2250; J2543; J3010; J3411; J3475; Q9967